=== PATIENT | male | born 1960 | race Caucasian/White ===

== ENCOUNTER 2021-04-01 12:38 | Emergency (ER) | payer BC ==
[~2021-04-01] VITALS: Ht 172.7 cm; Wt 118.2 kg
[2021-04-01 12:57] VITALS: BP 181/90
[2021-04-01 14:04] LABS: BASOPHILS % (AUTO) 0.5 % (0-1); EOSINOPHILS # (AUTO) 0.3 X10'3 (0-0.9); EOSINOPHILS % (AUTO) 3.2 % (0-6); HEMATOCRIT 40.8 % (42.0-52.0); HEMOGLOBIN 13.9 g/dl (14.0-17.9); LYMPHOCYTES # (AUTO) 2.2 X10'3 (1.1-4.8); MEAN CORPUSCULAR HEMOGLOBIN 30.1 PG (27.0-31.0); MEAN CORPUSCULAR HGB CONC 34.1 g/dL (33.0-36.5); MEAN CORPUSCULAR VOLUME 88.2 FL (78-98); MEAN PLATELET VOLUME 9.2 FL (7.4-10.4); MONOCYTES % (AUTO) 12.1 % (2-12); NEUTROPHILS # (AUTO) 4.7 X10'3 (1.8-7.7); NEUTROPHILS % (AUTO) 57.2 % (42-75); PLATELET COUNT 190 X10'3 (140-440); RED BLOOD COUNT 4.62 X10'6 (4.70-6.10); RED CELL DISTRIBUTION WIDTH 14.2 % (11.5-14.5); WHITE BLOOD COUNT 8.2 X10'3 (4.5-11.0)
[2021-04-01 14:16] LABS: ALANINE AMINOTRANSFERASE 37 U/L (12-78); ALBUMIN 3.7 G/DL (3.4-5.0); ALKALINE PHOSPHATASE 75 IU/L (46-116); ANION GAP 6 (8-16); ASPARTATE AMINO TRANSFERASE 27 U/L (10-37); BILIRUBIN,TOTAL 0.7 MG/DL (0.1-1.0); BLOOD UREA NITROGEN 15 MG/DL (7-18); BUN/CREATININE RATIO 12.6 (5.4-32.0); C-REACTIVE PROTEIN 2.49 MG/DL (0.0-0.5); CALCIUM 9.7 MG/DL (8.5-10.1); CHLORIDE 105 MMOL/L (99-107); CREATININE 1.19 MG/DL (0.60-1.10); GLUCOSE 86 MG/DL (70-104); LACTATE DEHYDROGENASE 193 U/L (85-227); POTASSIUM 4.2 MMOL/L (3.5-5.1); SODIUM 141 MMOL/L (135-145); TOTAL CARBON DIOXIDE 30.2 MMOL/L (24-32); TOTAL PROTEIN 7.5 G/DL (6.4-8.2); eGFR 63 ML/MIN
== END 2021-04-01 15:06 | disposition home or self-care (01) ==
LOC: ER 12:39
DX: B34.9 Viral infection, unspecified (principal); Z20.822 Contact with and (suspected) exposure to COVID-19
CPT/HCPCS: 36415; 71045; 80053; 83615; 85025; 86140; 87635; 99284; C9803

== ENCOUNTER 2023-06-13 14:17 | Emergency (ER) | payer BC ==
[~2023-06-13] VITALS: Ht 172.7 cm; Wt 124.0 kg
[2023-06-13 14:20] VITALS: BP 107/83; PULSE 83; TEMP 99.9; O2SAT 98
[2023-06-13] MEDS ORDERED: dexamethasone sod phosphate 10mg/ml inj PO STA (15:28)
[2023-06-13] MEDS ORDERED: HYDROcodone/acetaminophen 5mg/325mg tablet PO ONE (15:30)
[2023-06-13] MEDS ORDERED: ondansetron 4mg rapidly disintigrating tab PO ONE (15:30)
[2023-06-13 16:30] VITALS: RESP 16
[2023-06-13] MEDS ORDERED: PROM118S5 PO ×2 (17:10→17:28)
[2023-06-13] MEDS ORDERED: PRED20TA PO ×2 (17:10→17:28)
[2023-06-13] MEDS ORDERED: ACET-38 PO ×2 (17:10→17:28)
[2023-06-14] MEDS ORDERED: ONDA4TAB12 PO (14:43)
== END 2023-06-13 17:35 | disposition home or self-care (01) ==
LOC: ER 14:18
DX: J22 Unspecified acute lower respiratory infection (principal); Z79.899 Other long term (current) drug therapy; Z79.1 Long term (current) use of non-steroidal anti-inflammatories (NSAID)
CPT/HCPCS: 71045; 87502; 87503; 99284; J1100

== ENCOUNTER 2023-06-14 08:27 | Emergency (ER) | payer OTHER, BC ==
[~2023-06-14] VITALS: Ht 172.7 cm; Wt 121.1 kg
[~2023-06-14 08:27] MED LIST: ACET-38 PO; PRED20TA PO; PROM118S5 PO
[2023-06-14 09:13] VITALS: TEMP 96.3
[2023-06-14 11:31] LABS: EOSINOPHILS % (AUTO) 0 % (0-6); HEMOGLOBIN 15.7 g/dl (14.0-17.9); MONOCYTES # (AUTO) 1.1 X10'3 (0-0.9)
[2023-06-14 11:32] LABS: BASOPHILS % (AUTO) 0.2 % (0-1); HEMATOCRIT 46.6 % (42.0-52.0); LYMPHOCYTES # (AUTO) 2.1 X10'3 (1.1-4.8); LYMPHOCYTES % (AUTO) 13.2 % (21-51); MEAN CORPUSCULAR HEMOGLOBIN 29.7 PG (27.0-31.0); MEAN CORPUSCULAR HGB CONC 33.6 g/dL (33.0-36.5); MEAN CORPUSCULAR VOLUME 88.5 FL (78-98); MEAN PLATELET VOLUME 9.5 FL (7.4-10.4); MONOCYTES % (AUTO) 6.7 % (2-12); NEUTROPHILS # (AUTO) 12.8 X10'3 (1.8-7.7); NEUTROPHILS % (AUTO) 79.9 % (42-75); PLATELET COUNT 249 X10'3 (140-440); RED BLOOD COUNT 5.27 X10'6 (4.70-6.10); RED CELL DISTRIBUTION WIDTH 14.7 % (11.5-14.5); WHITE BLOOD COUNT 16.1 X10'3 (4.5-11.0)
[2023-06-14 11:42] LABS: ALANINE AMINOTRANSFERASE 31 U/L (12-78); ALBUMIN 3.2 G/DL (3.4-5.0); ALBUMIN/GLOBULIN RATIO 0.7 (1.1-1.5); ALKALINE PHOSPHATASE 75 IU/L (46-116); ANION GAP 11 (8-16); ASPARTATE AMINO TRANSFERASE 31 U/L (10-37); BILIRUBIN,TOTAL 1.1 MG/DL (0.1-1.0); BLOOD UREA NITROGEN 31 MG/DL (7-18); BUN/CREATININE RATIO 16.3 (10.0-20.0); CALCIUM 8.8 MG/DL (8.5-10.1); CHLORIDE 100 MMOL/L (99-107); CREATINE KINASE 329 U/L (39-308); GLUCOSE 148 MG/DL (70-104); MAGNESIUM 2.1 MG/DL (1.5-2.4); POTASSIUM 3.9 MMOL/L (3.5-5.1); SODIUM 135 MMOL/L (135-145); TOTAL CARBON DIOXIDE 23.8 MMOL/L (24-32); TOTAL PROTEIN 7.9 G/DL (6.4-8.2); eCRCL 40 ML/MIN; eGFR 36 ML/MIN
[2023-06-14] MEDS: ondansetron/PF 4mg/2ml inj IV ONE (11:55)
[2023-06-14] MEDS: normal saline 1000ML IV soln IVB ONE ×2 (11:55→17:00)
[2023-06-14 12:12] LABS: GIANT PLATELET FEW; LARGE PLATELETS FEW; PLATELET ESTIMATE NORMAL
[2023-06-14 14:26] LABS: BILIRUBIN,URINE NEGATIVE (Neg); CLARITY,URINE CLEAR (Clear); COLOR,URINE YELLOW (Yellow); GLUCOSE, URINE NEGATIVE (Neg); KETONES,URINE NEGATIVE (Neg); LEUKOCYTE ESTERASE ,URINE NEGATIVE (Neg); NITRITES, URINE NEGATIVE (Neg); OCCULT BLOOD,URINE NEGATIVE (Neg); PH,URINE 5.5 (4.8-8.0); PROTEIN,URINE TRACE mg/dl (Neg); UROBILINOGEN,URINE 0.2 E.U/dL (0.2-1.0)
[2023-06-14 14:34] LABS: UA COLLECTION TYPE VOIDED
[2023-06-14 14:35] LABS: BACTERIA,URINE NONE SEEN /HPF (Neg); MUCUS STRANDS NONE SEEN /LPF (Neg); RBC,URINE NONE SEEN /HPF (0-2); SQUAMOUS EPITHELIAL CELL,UR FEW /LPF (FEW); WBC,URINE 0-4 /HPF (0-4)
[2023-06-14] MEDS ORDERED: ONDA4TAB12 PO (14:43)
[2023-06-14 14:48] VITALS: BP 106/60; PULSE 88; RESP 18; O2SAT 93
== END 2023-06-14 18:19 | disposition home or self-care (01) ==
LOC: ER 08:27
DX: E86.0 Dehydration (principal); Z20.822 Contact with and (suspected) exposure to COVID-19; B34.9 Viral infection, unspecified; R19.7 Diarrhea, unspecified; R05.9 Cough, unspecified; Z79.899 Other long term (current) drug therapy; Z79.1 Long term (current) use of non-steroidal anti-inflammatories (NSAID)
CPT/HCPCS: 36415; 80053; 81001; 82550; 82948; 83735; 85008; 85025; 87811; 96360; 96361; 99284; J7030

== ENCOUNTER 2023-06-22 14:03 | Emergency (ER) | payer OTHER, BC ==
[~2023-06-22] VITALS: Ht 172.7 cm; Wt 118.2 kg
[~2023-06-22 14:03] MED LIST changes: +ONDA4TAB12 PO
[2023-06-22 14:09] VITALS: TEMP 97.7
[2023-06-22 14:50] LABS: BASOPHILS # (AUTO) 0.1 X10'3 (0-0.2); BASOPHILS % (AUTO) 0.5 % (0-1); EOSINOPHILS # (AUTO) 0.2 X10'3 (0-0.9); EOSINOPHILS % (AUTO) 1.2 % (0-6); HEMATOCRIT 49.1 % (42.0-52.0); HEMOGLOBIN 16.2 g/dl (14.0-17.9); LYMPHOCYTES # (AUTO) 4.4 X10'3 (1.1-4.8); LYMPHOCYTES % (AUTO) 34.4 % (21-51); MEAN CORPUSCULAR HEMOGLOBIN 29.6 PG (27.0-31.0); MEAN CORPUSCULAR VOLUME 89.7 FL (78-98); MEAN PLATELET VOLUME 8.2 FL (7.4-10.4); MONOCYTES # (AUTO) 1.4 X10'3 (0-0.9); MONOCYTES % (AUTO) 10.5 % (2-12); NEUTROPHILS # (AUTO) 6.9 X10'3 (1.8-7.7); NEUTROPHILS % (AUTO) 53.4 % (42-75); PLATELET COUNT 296 X10'3 (140-440); RED BLOOD COUNT 5.48 X10'6 (4.70-6.10); RED CELL DISTRIBUTION WIDTH 15.2 % (11.5-14.5); WHITE BLOOD COUNT 12.9 X10'3 (4.5-11.0)
[2023-06-22 15:13] LABS: ALBUMIN 3.3 G/DL (3.4-5.0); ANION GAP 8 (8-16); BLOOD UREA NITROGEN 42 MG/DL (7-18); BUN/CREATININE RATIO 20.7 (10.0-20.0); CALCIUM 8.8 MG/DL (8.5-10.1); CHLORIDE 103 MMOL/L (99-107); CREATININE 2.03 MG/DL (0.60-1.10); GLUCOSE 103 MG/DL (70-104); POTASSIUM 3.8 MMOL/L (3.5-5.1); PRO BRAIN NATRIURETIC PEPTIDE 500 PG/ML (0-125); SODIUM 138 MMOL/L (135-145); TOTAL CARBON DIOXIDE 26.9 MMOL/L (24-32); eCRCL 37 ML/MIN; eGFR 34 ML/MIN
[2023-06-22 19:52] VITALS: BP 119/74; PULSE 75; RESP 18; O2SAT 95
[2023-06-22] MEDS ORDERED: normal saline 1000ml 1,000 ML IV ONE (23:05)
[2023-06-22] MEDS ORDERED: dabigatran 150mg capsule PO ONE (23:05)
[2023-06-22] MEDS ORDERED: iohexol 350MG/ML 100ml bottle IV ONE (23:48)
[2023-06-22 23:54] LABS: ALANINE AMINOTRANSFERASE 57 U/L (12-78); ALBUMIN 3.4 G/DL (3.4-5.0); ALBUMIN/GLOBULIN RATIO 0.8 (1.1-1.5); ALKALINE PHOSPHATASE 103 IU/L (46-116); ANION GAP 12 (8-16); ASPARTATE AMINO TRANSFERASE 31 U/L (10-37); BILIRUBIN,TOTAL 0.7 MG/DL (0.1-1.0); BLOOD UREA NITROGEN 46 MG/DL (7-18); BUN/CREATININE RATIO 22.2 (10.0-20.0); CALCIUM 8.5 MG/DL (8.5-10.1); CHLORIDE 103 MMOL/L (99-107); CREATININE 2.07 MG/DL (0.60-1.10); GLUCOSE 101 MG/DL (70-104); LIPASE 142 U/L (16-77); POTASSIUM 3.6 MMOL/L (3.5-5.1); SODIUM 141 MMOL/L (135-145); TOTAL CARBON DIOXIDE 26.4 MMOL/L (24-32); TOTAL PROTEIN 7.6 G/DL (6.4-8.2); eCRCL 36 ML/MIN; eGFR 33 ML/MIN
[2023-06-23 01:32] LABS: BILIRUBIN,URINE NEGATIVE (Neg); CLARITY,URINE CLEAR (Clear); COLOR,URINE YELLOW (Yellow); GLUCOSE, URINE NEGATIVE (Neg); KETONES,URINE NEGATIVE (Neg); LEUKOCYTE ESTERASE ,URINE NEGATIVE (Neg); NITRITES, URINE NEGATIVE (Neg); OCCULT BLOOD,URINE NEGATIVE (Neg); PH,URINE 5.5 (4.8-8.0); PROTEIN,URINE NEGATIVE (Neg); UROBILINOGEN,URINE 0.2 E.U/dL (0.2-1.0)
[2023-06-23 01:41] LABS: UA COLLECTION TYPE VOIDED
== END 2023-06-23 04:49 | disposition home or self-care (01) ==
LOC: ER 14:04
DX: R74.8 Abnormal levels of other serum enzymes (principal); R51.9 Headache, unspecified; R53.1 Weakness; R61 Generalized hyperhidrosis; Z79.52 Long term (current) use of systemic steroids
CPT/HCPCS: 36415; 71045; 71275; 74177; 80048; 80053; 81003; 83690; 83880; 84145; 84484; 85025; 93005; 96360; 99285; J7030; Q9967

== ENCOUNTER 2024-05-10 06:55 | Inpatient (IN) | payer OTHER, BC ==
[~2024-05-10] VITALS: Ht 172.7 cm; Wt 122.7 kg
[~2024-05-10 06:55] MED LIST changes: +ONDA-243 PO; -ONDA4TAB12 PO
[2024-05-10 08:17] LABS: BASOPHILS # (AUTO) 0.1 X10'3 (0-0.2); BASOPHILS % (AUTO) 1.4 % (0-1); EOSINOPHILS # (AUTO) 0.5 X10'3 (0-0.9); EOSINOPHILS % (AUTO) 5.6 % (0-6); HEMATOCRIT 40.9 % (42.0-52.0); HEMOGLOBIN 13.7 g/dl (14.0-17.9); LYMPHOCYTES # (AUTO) 2.8 X10'3 (1.1-4.8); LYMPHOCYTES % (AUTO) 34.7 % (21-51); MEAN CORPUSCULAR HEMOGLOBIN 29.3 PG (27.0-31.0); MEAN CORPUSCULAR HGB CONC 33.5 g/dL (33.0-36.5); MEAN CORPUSCULAR VOLUME 87.3 FL (78-98); MEAN PLATELET VOLUME 8.6 FL (7.4-10.4); MONOCYTES # (AUTO) 0.9 X10'3 (0-0.9); MONOCYTES % (AUTO) 11.6 % (2-12); NEUTROPHILS # (AUTO) 3.8 X10'3 (1.8-7.7); NEUTROPHILS % (AUTO) 46.7 % (42-75); PLATELET COUNT 385 X10'3 (140-440); RED BLOOD COUNT 4.69 X10'6 (4.70-6.10); RED CELL DISTRIBUTION WIDTH 14.2 % (11.5-14.5)
[2024-05-10 08:34] LABS: ALANINE AMINOTRANSFERASE 27 U/L (12-78); ALBUMIN 3.5 G/DL (3.4-5.0); ALBUMIN/GLOBULIN RATIO 0.9 (1.1-1.5); ALKALINE PHOSPHATASE 102 IU/L (46-116); ANION GAP 9 (8-16); ASPARTATE AMINO TRANSFERASE 22 U/L (10-37); BILIRUBIN,TOTAL 0.5 MG/DL (0.1-1.0); BLOOD UREA NITROGEN 20 MG/DL (7-18); BUN/CREATININE RATIO 13.2 (10.0-20.0); CHLORIDE 105 MMOL/L (99-107); CREATININE 1.52 MG/DL (0.60-1.10); GLUCOSE 111 MG/DL (70-104); POTASSIUM 3.9 MMOL/L (3.5-5.1); SODIUM 139 MMOL/L (135-145); TOTAL PROTEIN 7.6 G/DL (6.4-8.2); eCRCL 49 ML/MIN; eGFR 47 ML/MIN
[2024-05-10 09:14] LABS: BILIRUBIN,URINE NEGATIVE (Neg); COLOR,URINE YELLOW (Yellow); GLUCOSE, URINE NEGATIVE (Neg); KETONES,URINE NEGATIVE (Neg); LEUKOCYTE ESTERASE ,URINE NEGATIVE (Neg); NITRITES, URINE NEGATIVE (Neg); OCCULT BLOOD,URINE NEGATIVE (Neg); PROTEIN,URINE NEGATIVE (Neg); UROBILINOGEN,URINE 0.2 E.U/dL (0.2-1.0)
[2024-05-10 09:25] LABS: CLARITY,URINE SLIGHTLY CLOUDY (Clear); UA COLLECTION TYPE CLN CATCH MIDSTREAM
[2024-05-10 09:26] LABS: AMORPHOUS URATES 1+; BACTERIA,URINE FEW /HPF (Neg); MUCUS STRANDS NONE SEEN /LPF (Neg); RBC,URINE 0-2 /HPF (0-2); SQUAMOUS EPITHELIAL CELL,UR NONE SEEN /LPF (FEW); WBC,URINE NONE SEEN /HPF (0-4)
[2024-05-10 09:27] LABS: URIC ACID CRYSTALS 1+ /HPF (NEGATIVE)
[2024-05-10] MEDS ORDERED: CARSR60C PO (10:35)
[2024-05-10] MEDS ORDERED: DABI150C PO (10:35)
[2024-05-10] MEDS ORDERED: HYDR25TA5 PO (10:35)
[2024-05-10] MEDS ORDERED: LOSA-415 PO (10:35)
[2024-05-10] MEDS: ringers solution, lacted 1,000 ML IV ONE (11:15)
[2024-05-10] MEDS ORDERED: ondansetron/PF 4mg/2ml inj IV PRN (11:35)
[2024-05-10] MEDS ORDERED: mag hydrox/Alum hydrox/simeth 30ml oral suspension PO PRN (11:35)
[2024-05-10] MEDS ORDERED: magnesium hydroxide 30ml (MOM) UD suspension PO PRN (11:35)
[2024-05-10] MEDS ORDERED: acetaminophen 325mg tablet PO PRN (11:35)
[2024-05-10] MEDS ORDERED: dextrose 5%-1/2 normal saline 1,000 ML IV SCH (11:35)
[2024-05-10 12:00] LABS: PRO BRAIN NATRIURETIC PEPTIDE 715 PG/ML (0-125)
[2024-05-10] MEDS: piperacillin/tazo 4.5gm/100ml 100 ML IV SCH (16:44)
[2024-05-10] MEDS: HYDROcodone/acetaminophen 10/325mg tab PO PRN (18:12)
[2024-05-10] MEDS: docusate sod 100mg capsule PO SCH (19:36)
[2024-05-10] MEDS: vancomycin/NS 1 GM ADD-VANTAGE 250 ML IV SCH (20:22)
[2024-05-11] VITALS (20 sets, daily range): BP systolic 110–152; BP diastolic 55–97; PULSE 56–116; RESP 13–20; TEMP 97.4–99.6; O2SAT 3–100
[2024-05-11] MEDS: dextrose 5%-1/2 normal saline 1,000 ML IV SCH (00:37)
[2024-05-11 03:41] LABS: BASOPHILS # (AUTO) 0.1 X10'3 (0-0.2); BASOPHILS % (AUTO) 0.9 % (0-1); EOSINOPHILS # (AUTO) 0.4 X10'3 (0-0.9); HEMATOCRIT 41.1 % (42.0-52.0); HEMOGLOBIN 13.7 g/dl (14.0-17.9); LYMPHOCYTES # (AUTO) 2.9 X10'3 (1.1-4.8); MEAN CORPUSCULAR HEMOGLOBIN 29.1 PG (27.0-31.0); MEAN CORPUSCULAR HGB CONC 33.2 g/dL (33.0-36.5); MEAN CORPUSCULAR VOLUME 87.6 FL (78-98); MEAN PLATELET VOLUME 8.4 FL (7.4-10.4); MONOCYTES # (AUTO) 0.7 X10'3 (0-0.9); MONOCYTES % (AUTO) 8.6 % (2-12); NEUTROPHILS # (AUTO) 4.4 X10'3 (1.8-7.7); NEUTROPHILS % (AUTO) 51.5 % (42-75); PLATELET COUNT 370 X10'3 (140-440); RED BLOOD COUNT 4.69 X10'6 (4.70-6.10); RED CELL DISTRIBUTION WIDTH 14.4 % (11.5-14.5); WHITE BLOOD COUNT 8.5 X10'3 (4.5-11.0)
[2024-05-11 03:51] LABS: ALBUMIN 3.3 G/DL (3.4-5.0); ANION GAP 10 (8-16); BLOOD UREA NITROGEN 22 MG/DL (7-18); BUN/CREATININE RATIO 14.7 (10.0-20.0); CALCIUM 9.4 MG/DL (8.5-10.1); CHLORIDE 103 MMOL/L (99-107); GLUCOSE 111 MG/DL (70-104); SODIUM 138 MMOL/L (135-145); TOTAL CARBON DIOXIDE 25.4 MMOL/L (24-32); eCRCL 49 ML/MIN; eGFR 47 ML/MIN
[2024-05-11] MEDS: famotidine 20mg tablet PO ONE (08:44)
[2024-05-11] MEDS ORDERED: enalaprilat dihydrate 2.5mg/2ml vial IV PRN (09:20)
[2024-05-11] MEDS: ringers solution, lacted 1,000 ML IV SCH (09:20)
[2024-05-11] MEDS ORDERED: morphine 4 MG/ML inj SYRINge IV PRN (09:20)
[2024-05-11] MEDS ORDERED: meperidine/PF 25mg/ml syringe IV PRN ×3 (09:20)
[2024-05-11] MEDS ORDERED: morphine 2 MG/ML inj. syringe IV PRN (09:20)
[2024-05-11] MEDS ORDERED: ondansetron/PF 4mg/2ml inj IV PRN (09:20)
[2024-05-11] MEDS ORDERED: proCHLORperazine 10 MG/2 ml inj IV PRN (09:20)
[2024-05-11] MEDS ORDERED: labetalol 20mg/4ml (5mg/ml) syringe IV PRN (09:20)
[2024-05-11] MEDS ORDERED: sevoflurane 250ml liquid IH ONE (11:32)
[2024-05-11] MEDS ORDERED: midazolam 1 mg/ML 2ml injection ONE (11:35)
[2024-05-11] MEDS ORDERED: fentaNYL/PF 50MCG/1 ML 2ML syringe ONE (11:35)
[2024-05-11] MEDS ORDERED: propofol inj 20 ML IV ONE (11:40)
[2024-05-11] MEDS ORDERED: LIDOcaine 1%/PF 5ML 10 MG/ML VIAL ONE (11:40)
[2024-05-11] MEDS ORDERED: metoprolol tartrate 1mg/ml inj IV ONE (11:45)
[2024-05-11] MEDS ORDERED: naloxone 0.4 mg/ml inj IV PRN (12:05)
[2024-05-11] MEDS ORDERED: HYDROmorphone inj. 0.5 MG/0.5 ML DISP.SYRIN IV PRN (12:10)
[2024-05-11] MEDS: acetaminophen 325mg tablet PO PRN (20:20)
[2024-05-12] MEDS: morphine 2 MG/ML inj. syringe IV PRN (00:53)
[2024-05-12 02:06] VITALS: BP 142/74; PULSE 94; RESP 18; TEMP 97.6; O2SAT 96
[2024-05-12 05:00] VITALS: BP 110/60; PULSE 120; RESP 20; TEMP 97.6; O2SAT 96
[2024-05-12 07:29] LABS: BASOPHILS % (AUTO) 0.2 % (0-1); EOSINOPHILS % (AUTO) 0 % (0-6); HEMATOCRIT 37.4 % (42.0-52.0); HEMOGLOBIN 12.7 g/dl (14.0-17.9); LYMPHOCYTES # (AUTO) 1.5 X10'3 (1.1-4.8); LYMPHOCYTES % (AUTO) 13.7 % (21-51); MEAN CORPUSCULAR HEMOGLOBIN 29.5 PG (27.0-31.0); MEAN CORPUSCULAR HGB CONC 33.8 g/dL (33.0-36.5); MEAN CORPUSCULAR VOLUME 87.2 FL (78-98); MEAN PLATELET VOLUME 8.6 FL (7.4-10.4); MONOCYTES # (AUTO) 0.6 X10'3 (0-0.9); MONOCYTES % (AUTO) 5.6 % (2-12); NEUTROPHILS # (AUTO) 8.8 X10'3 (1.8-7.7); NEUTROPHILS % (AUTO) 80.5 % (42-75); PLATELET COUNT 320 X10'3 (140-440); RED BLOOD COUNT 4.29 X10'6 (4.70-6.10)
[2024-05-12] MEDS: VANCOMYCIN LEVEL IV ONE (07:30)
[2024-05-12 07:33] LABS: ALBUMIN 3.1 G/DL (3.4-5.0); ANION GAP 11 (8-16); BLOOD UREA NITROGEN 23 MG/DL (7-18); BUN/CREATININE RATIO 16.9 (10.0-20.0); CHLORIDE 105 MMOL/L (99-107); CREATININE 1.36 MG/DL (0.60-1.10); GLUCOSE 160 MG/DL (70-104); POTASSIUM 4.7 MMOL/L (3.5-5.1); SODIUM 140 MMOL/L (135-145); VANCOMYCIN,TROUGH 13.8 ug/mL (10.0-20.0); eCRCL 54 ML/MIN; eGFR 53 ML/MIN
[2024-05-12 08:00] VITALS: RESP 18
[2024-05-12 11:00] VITALS: BP 94/67; PULSE 91; RESP 20; TEMP 97.2; O2SAT 97
[2024-05-12] MEDS: diltiazem SR 60mg capsule (twice daily) PO SCH (12:25)
[2024-05-12] MEDS: HYDROcodone/acetaminophen 10/325mg tab PO PRN (15:26)
[2024-05-12 20:00] VITALS: RESP 18; O2SAT 95
[2024-05-12] MEDS: VANCOmycin 1250MG/NS 250ml Bag 250 ML IV SCH (20:33)
[2024-05-12] MEDS: Dakins solution (1/4 strength) 473ml solution TP SCH (20:43)
[2024-05-13] MEDS: morphine 2 MG/ML inj. syringe IV PRN (00:17)
[2024-05-13 04:57] LABS: BASOPHILS % (AUTO) 0.3 % (0-1); EOSINOPHILS % (AUTO) 0.1 % (0-6); HEMATOCRIT 37.9 % (42.0-52.0); HEMOGLOBIN 12.6 g/dl (14.0-17.9); LYMPHOCYTES # (AUTO) 2.4 X10'3 (1.1-4.8); LYMPHOCYTES % (AUTO) 22.8 % (21-51); MEAN CORPUSCULAR HEMOGLOBIN 29.3 PG (27.0-31.0); MEAN CORPUSCULAR HGB CONC 33.3 g/dL (33.0-36.5); MEAN CORPUSCULAR VOLUME 87.9 FL (78-98); MEAN PLATELET VOLUME 8.3 FL (7.4-10.4); MONOCYTES # (AUTO) 0.8 X10'3 (0-0.9); NEUTROPHILS # (AUTO) 7.2 X10'3 (1.8-7.7); NEUTROPHILS % (AUTO) 68.8 % (42-75); PLATELET COUNT 333 X10'3 (140-440); RED BLOOD COUNT 4.31 X10'6 (4.70-6.10); RED CELL DISTRIBUTION WIDTH 14.2 % (11.5-14.5); WHITE BLOOD COUNT 10.5 X10'3 (4.5-11.0)
[2024-05-13 05:09] LABS: ALBUMIN 3.2 G/DL (3.4-5.0); ANION GAP 8 (8-16); BLOOD UREA NITROGEN 24 MG/DL (7-18); BUN/CREATININE RATIO 16.7 (10.0-20.0); CHLORIDE 107 MMOL/L (99-107); CREATININE 1.44 MG/DL (0.60-1.10); GLUCOSE 129 MG/DL (70-104); POTASSIUM 4.5 MMOL/L (3.5-5.1); SODIUM 142 MMOL/L (135-145); TOTAL CARBON DIOXIDE 27.4 MMOL/L (24-32); eCRCL 51 ML/MIN; eGFR 50 ML/MIN
[2024-05-13 06:00] VITALS: BP 133/85; PULSE 83; RESP 18; TEMP 96.9; O2SAT 97
[2024-05-13 10:00] VITALS: BP 126/78; PULSE 78; RESP 16; TEMP 98.3; O2SAT 96
[2024-05-13 18:00] VITALS: BP 132/79; PULSE 105; RESP 20; TEMP 98; O2SAT 95
[2024-05-13 20:00] VITALS: RESP 16; O2SAT 96
[2024-05-13 22:00] VITALS: BP 113/60; PULSE 88; RESP 16; TEMP 98.4; O2SAT 96
[2024-05-13] MEDS: HYDROcodone/acetaminophen 5mg/325mg tablet PO PRN (22:30)
[2024-05-14 06:00] VITALS: BP 132/84; PULSE 68; RESP 18; TEMP 97.9; O2SAT 96
[2024-05-14 06:26] LABS: BASOPHILS # (AUTO) 0.1 X10'3 (0-0.2); BASOPHILS % (AUTO) 0.7 % (0-1); EOSINOPHILS # (AUTO) 0.2 X10'3 (0-0.9); EOSINOPHILS % (AUTO) 1.5 % (0-6); HEMATOCRIT 36.3 % (42.0-52.0); HEMOGLOBIN 12.3 g/dl (14.0-17.9); LYMPHOCYTES # (AUTO) 3.5 X10'3 (1.1-4.8); MEAN CORPUSCULAR HEMOGLOBIN 29.5 PG (27.0-31.0); MEAN CORPUSCULAR HGB CONC 33.8 g/dL (33.0-36.5); MEAN CORPUSCULAR VOLUME 87.4 FL (78-98); MEAN PLATELET VOLUME 8.6 FL (7.4-10.4); MONOCYTES % (AUTO) 8.7 % (2-12); NEUTROPHILS # (AUTO) 6.2 X10'3 (1.8-7.7); NEUTROPHILS % (AUTO) 57.1 % (42-75); PLATELET COUNT 308 X10'3 (140-440); RED BLOOD COUNT 4.16 X10'6 (4.70-6.10); RED CELL DISTRIBUTION WIDTH 14.4 % (11.5-14.5); WHITE BLOOD COUNT 10.9 X10'3 (4.5-11.0)
[2024-05-14 06:32] LABS: ALBUMIN 3.2 G/DL (3.4-5.0); ANION GAP 7 (8-16); BLOOD UREA NITROGEN 23 MG/DL (7-18); BUN/CREATININE RATIO 14.9 (10.0-20.0); CALCIUM 8.5 MG/DL (8.5-10.1); CHLORIDE 107 MMOL/L (99-107); CREATININE 1.54 MG/DL (0.60-1.10); GLUCOSE 86 MG/DL (70-104); SODIUM 141 MMOL/L (135-145); TOTAL CARBON DIOXIDE 27.3 MMOL/L (24-32); eCRCL 48 ML/MIN; eGFR 46 ML/MIN
[2024-05-14] MEDS: VANCOMYCIN LEVEL IV ONE (08:30)
[2024-05-14 08:48] VITALS: RESP 16
[2024-05-14 10:00] VITALS: BP 102/74; PULSE 93; RESP 18; TEMP 97.7; O2SAT 96
[2024-05-14] MEDS: ceFAZolin/D5W- 1GM premix 50 ML IV SCH (15:59)
[2024-05-14 18:00] VITALS: BP 132/80; PULSE 110; RESP 18; TEMP 98.7; O2SAT 94
[2024-05-14 20:00] VITALS: RESP 18
[2024-05-14] MEDS ORDERED: enoxaparin 40mg/0.4ml syringe SUBCUT SCH (20:00)
[2024-05-14] MEDS: dabigatran 150mg capsule PO SCH (20:45)
[2024-05-14] MEDS: diphenhydrAMINE 25mg capsule PO SCH (20:45)
[2024-05-14 22:00] VITALS: BP 140/85; PULSE 126; RESP 16; TEMP 97.2; O2SAT 94
[2024-05-15 06:00] VITALS: BP 114/60; PULSE 110; RESP 18; TEMP 97.4; O2SAT 95
[2024-05-15 06:30] LABS: BASOPHILS # (AUTO) 0.1 X10'3 (0-0.2); BASOPHILS % (AUTO) 0.6 % (0-1); EOSINOPHILS # (AUTO) 0.5 X10'3 (0-0.9); EOSINOPHILS % (AUTO) 4.6 % (0-6); HEMOGLOBIN 11.9 g/dl (14.0-17.9); LYMPHOCYTES # (AUTO) 3.4 X10'3 (1.1-4.8); LYMPHOCYTES % (AUTO) 30.3 % (21-51); MEAN CORPUSCULAR HEMOGLOBIN 29.3 PG (27.0-31.0); MEAN CORPUSCULAR HGB CONC 33.9 g/dL (33.0-36.5); MEAN CORPUSCULAR VOLUME 86.5 FL (78-98); MEAN PLATELET VOLUME 8.7 FL (7.4-10.4); MONOCYTES # (AUTO) 1.2 X10'3 (0-0.9); MONOCYTES % (AUTO) 11.1 % (2-12); NEUTROPHILS # (AUTO) 5.9 X10'3 (1.8-7.7); NEUTROPHILS % (AUTO) 53.4 % (42-75); PLATELET COUNT 278 X10'3 (140-440); RED BLOOD COUNT 4.05 X10'6 (4.70-6.10); RED CELL DISTRIBUTION WIDTH 14.2 % (11.5-14.5); WHITE BLOOD COUNT 11.1 X10'3 (4.5-11.0)
[2024-05-15 06:44] LABS: ALBUMIN 3.1 G/DL (3.4-5.0); ANION GAP 9 (8-16); BLOOD UREA NITROGEN 27 MG/DL (7-18); BUN/CREATININE RATIO 19.4 (10.0-20.0); CALCIUM 8.8 MG/DL (8.5-10.1); CHLORIDE 106 MMOL/L (99-107); CREATININE 1.39 MG/DL (0.60-1.10); GLUCOSE 83 MG/DL (70-104); POTASSIUM 4.2 MMOL/L (3.5-5.1); SODIUM 143 MMOL/L (135-145); TOTAL CARBON DIOXIDE 28.4 MMOL/L (24-32); eCRCL 53 ML/MIN; eGFR 52 ML/MIN
[2024-05-15 10:43] VITALS: BP 105/70; PULSE 109; RESP 20; TEMP 97.9; O2SAT 93
[2024-05-15 18:00] VITALS: BP 110/80; PULSE 101; RESP 16; TEMP 97.8; O2SAT 95
[2024-05-15] MEDS ORDERED: METHYL SALICYLATE 15%/MENTHOL 1% CREAM-- 85GM TUBE TOP PRN (18:05)
[2024-05-15 20:00] VITALS: RESP 16; O2SAT 95
[2024-05-15 22:00] VITALS: BP 117/58; PULSE 91; RESP 12; TEMP 97.9; O2SAT 94
[2024-05-16 07:22] VITALS: BP 122/77; PULSE 67; RESP 14; TEMP 97.8; O2SAT 92
[2024-05-16 08:59] VITALS: RESP 16
[2024-05-16 10:00] VITALS: BP 125/83; PULSE 95; RESP 16; TEMP 97.9; O2SAT 96
[2024-05-16] MEDS ORDERED: CEPH250T PO (12:56)
[2024-05-16] MEDS ORDERED: HYDR-3965 PO (12:56)
== END 2024-05-16 16:21 | disposition home health service (06) | DRG 857 ==
LOC: ER 06:56 → ED HOLD 11:36 → SUR 3N 05-11 07:35
PROVIDERS: ADMIT Internal Medicine; ATTEND Internal Medicine
PROC: 0JB80ZZ Excision of Abdomen Subcutaneous Tissue and Fascia, Open Approach (ICD-10-PCS; principal; 2024-05-11 11:32)
DX: T81.40XA Infection following a procedure, unspecified, initial encounter (principal); L02.211 Cutaneous abscess of abdominal wall; Z68.41 Body mass index [BMI] 40.0-44.9, adult; L03.311 Cellulitis of abdominal wall; I48.0 Paroxysmal atrial fibrillation; G47.33 Obstructive sleep apnea (adult) (pediatric); K76.0 Fatty (change of) liver, not elsewhere classified; B95.61 Methicillin susceptible Staphylococcus aureus infection as the cause of diseases classified elsewhere; E66.01 Morbid (severe) obesity due to excess calories; B95.1 Streptococcus, group B, as the cause of diseases classified elsewhere; I12.9 Hypertensive chronic kidney disease with stage 1 through stage 4 chronic kidney disease, or unspecified chronic kidney disease; N18.30 Chronic kidney disease, stage 3 unspecified; Y83.8 Other surgical procedures as the cause of abnormal reaction of the patient, or of later complication, without mention of misadventure at the time of the procedure; Y92.89 Other specified places as the place of occurrence of the external cause; Z79.899 Other long term (current) drug therapy
CPT/HCPCS: 36415; 74176; 80048; 80053; 80202; 81001; 82948; 83605; 83880; 84145; 85025; 87040; 87070; 87075; 87077; 87081; 87186; 93005; 99285; A4615; A4618; A6253; A6258; A6446; A6449; A7000; G0378; J0690; J1100; J2250; J2270; J2405; J2543; J2704; J3010; J3370; J3490; J7040; J7120; Q0163